=== PATIENT | male | born 1965 | race Caucasian/White ===

== ENCOUNTER → 2017-11-02 | Outpatient (CLI) | payer OTHER ==
[~2017-11-02] MED LIST: ALLOPURINOL 10100 M1; ALLOPURINOL 30300 M1; ANTACID650 MG PO; COREG25 MG; COZAAR 50 MG TA50 M2 PO; ERGOCALCIF50000 UNIT PO; HYDROCODON-ACE1 EAC8; MAGOX 400400 MG PO; METFORMIN HCL500 MG PO; NIFEDIPINE ER60 M1; OMEPRAZOLE40 MG; SYNTHROID137 MC1 PO; TUMS PO
== END ==
LOC: M.RAD 10:59
DX: R10.32 Left lower quadrant pain (principal)

== ENCOUNTER → 2017-11-05 | Outpatient (CLI) | payer OTHER ==
[2017-11-05 11:38] LABS: CREATININE 1.4 mg/dL (0.6-1.3)
== END ==
LOC: M.CT 11:22
PROVIDERS: Family Medicine
DX: D35.00 Benign neoplasm of unspecified adrenal gland (principal); M89.9 Disorder of bone, unspecified; N28.89 Other specified disorders of kidney and ureter; M53.3 Sacrococcygeal disorders, not elsewhere classified; N28.1 Cyst of kidney, acquired; N20.0 Calculus of kidney

== ENCOUNTER → 2017-11-06 | Outpatient (CLI) | payer OTHER | LOC: M.RAD 11:11 | DX: R05 Cough (principal) ==

== ENCOUNTER 2017-11-14 05:35 | Emergency (ER) | payer OTHER ==
[~2017-11-14] VITALS: Ht 177.8 cm; Wt 93.4 kg
[2017-11-14] MEDS ORDERED: COREG25 MG (05:43)
[2017-11-14] MEDS ORDERED: HYDROCODON-ACE1 EAC8 (05:43)
[2017-11-14] MEDS ORDERED: COZAAR 50 MG TA50 M2 PO (05:44)
[2017-11-14] MEDS ORDERED: NIFEDIPINE ER60 M1 (05:44)
[2017-11-14] MEDS ORDERED: OMEPRAZOLE40 MG (05:45)
[2017-11-14] MEDS ORDERED: METFORMIN HCL500 MG PO (05:45)
[2017-11-14] MEDS ORDERED: ALLOPURINOL 30300 M1 (05:45)
[2017-11-14] MEDS ORDERED: ALLOPURINOL 10100 M1 (05:45)
[2017-11-14 06:07] LABS: ABSOLUTE BASOPHILS 0.2 thou/uL (0.0-0.2); ABSOLUTE EOSINOPHILS 0.6 thou/uL (0.0-0.7); ABSOLUTE LYMPHOCYTES 2.1 thou/uL (0.8-5.3); ABSOLUTE NEUTROPHILS 9.9 thou/uL (1.6-8.1); BASOPHILS 1.1 %; EOSINOPHILS 4.4 %; HEMATOCRIT 29.3 % (42.0-52.0); HEMOGLOBIN 9.8 gm/dL (14.0-18.0); LYMPHOCYTES 15.4 %; MCH 27.7 pg (26.0-34.0); MCHC 33.6 g/dL (28.0-37.0); MCV 82.4 fL (80.0-100.0); MONOCYTES 7.4 %; MPV 7.2 fl. (7.2-11.1); NUCLEATED RBCS 0 /100WBC; PLATELET COUNT* 436 thou/uL (150-400); POLYS 71.7 %; RBC 3.55 mil/uL (4.50-6.00); RDW-CV 14.5 % (10.5-14.5); WBC 13.8 thou/uL (4.0-11.0)
[2017-11-14 06:26] LABS: CALCIUM 9.2 mg/dL (8.5-10.1); CREATININE 1.7 mg/dL (0.6-1.3)
[2017-11-14 06:31] LABS: ALBUMIN 2.9 g/dL (3.4-5.0); TOTAL BILIRUBIN 0.4 mg/dL (<0.1-1.0); TOTAL PROTEIN 6.9 g/dL (6.4-8.2)
[2017-11-14 06:43] LABS: BE -4.7 mmol/L (-2 to +3); HCO3 20.9 mmol/L (22.0-26.0); PCO2 40.8 mmHg (35.0-45.0); pH 7.328 (7.340-7.450)
[2017-11-14 06:49] LABS: URINE BILIRUBIN NEGATIVE (Negative); URINE BLOOD TRACE (Negative); URINE CLARITY CLEAR; URINE COLOR YELLOW; URINE GLUCOSE-RANDOM NEGATIVE (Negative); URINE KETONES NEGATIVE (Negative); URINE LEUKOCYTES-REFLEX NEGATIVE (Negative); URINE NITRITE-REFLEX NEGATIVE (Negative); URINE PROTEIN 1+ (Negative); URINE SPECIFIC GRAVITY 1.025 (1.005-1.030); URINE UROBILINOGEN 0.2 E.U./dl (0.2-1.0)
[2017-11-14 09:03] VITALS: BP 125/73
[2018-05-31] MEDS ORDERED: SYNTHROID137 MC1 PO (10:24)
[2018-05-31] MEDS ORDERED: ANTACID650 MG PO (10:25)
[2018-05-31] MEDS ORDERED: ERGOCALCIF50000 UNIT PO (10:27)
[2018-05-31] MEDS ORDERED: TUMS PO (10:29)
[2018-06-04] MEDS ORDERED: MAGOX 400400 MG PO (13:57)
== END 2017-11-14 09:09 | disposition still patient (30) ==
LOC: M.ERS 05:35
PROVIDERS: Personal Emergency Response Attendant
DX: N28.89 Other specified disorders of kidney and ureter (principal); I10 Essential (primary) hypertension; E11.9 Type 2 diabetes mellitus without complications

== ENCOUNTER 2021-02-23 01:16 | Inpatient (IN) | payer OTHER ==
[~2021-02-23] VITALS: Ht 177.8 cm; Wt 105.2 kg
[~2021-02-23 01:16] MED LIST changes: -ALLOPURINOL 10100 M1; +ALLOPURINOL 10100 M1 PO; -OMEPRAZOLE40 MG; +OMEPRAZOLE40 MG PO
[2021-02-23 01:35] VITALS: BP 179/107
[2021-02-23 02:06] LABS: ABSOLUTE BASOPHILS 0.1 thou/uL (0.0-0.2); ABSOLUTE EOSINOPHILS 0.4 thou/uL (0.0-0.7); ABSOLUTE LYMPHOCYTES 1.4 thou/uL (0.8-5.3); ABSOLUTE MONOCYTES 0.7 thou/uL (0.0-1.2); ABSOLUTE NEUTROPHILS 6.7 thou/uL (1.6-8.1); BASOPHILS 0.9 %; EOSINOPHILS 3.8 %; HEMATOCRIT 33.7 % (42.0-52.0); HEMOGLOBIN 11.7 gm/dL (14.0-18.0); LYMPHOCYTES 14.9 %; MCH 31.7 pg (26.0-34.0); MCHC 34.6 g/dL (28.0-37.0); MCV 91.5 fL (80.0-100.0); MONOCYTES 7.5 %; MPV 7.6 fl. (7.2-11.1); NUCLEATED RBCS 0 /100WBC; PLATELET COUNT* 151 thou/uL (150-400); POLYS 72.9 %; RBC 3.69 mil/uL (4.50-6.00); RDW-CV 14.7 % (10.5-14.5); WBC 9.2 thou/uL (4.0-11.0)
[2021-02-23] MEDS ORDERED: FLOMAX0.4 MG PO (02:08)
[2021-02-23] MEDS ORDERED: HYDRALAZINE HC100 MG PO (02:09)
[2021-02-23 02:10] LABS: CALCIUM 8.6 mg/dL (8.5-10.1); CREATININE 5.3 mg/dL (0.6-1.3); POTASSIUM 4.9 mmol/L (3.5-5.1)
[2021-02-23 02:14] LABS: ALBUMIN 4.3 g/dL (3.4-5.0); MAGNESIUM 1.5 mg/dL (1.8-2.4); TOTAL BILIRUBIN 0.4 mg/dL (<0.1-1.0); TOTAL PROTEIN 7.4 g/dL (6.4-8.2)
[2021-02-23 06:08] LABS: URINE BILIRUBIN NEGATIVE (Negative); URINE BLOOD 1+ (Negative); URINE CLARITY CLEAR; URINE COLOR YELLOW; URINE GLUCOSE-RANDOM NEGATIVE (Negative); URINE KETONES NEGATIVE (Negative); URINE LEUKOCYTES-REFLEX NEGATIVE (Negative); URINE NITRITE-REFLEX NEGATIVE (Negative); URINE PROTEIN 2+ (Negative); URINE UROBILINOGEN 0.2 E.U./dl (0.2-1.0)
[2021-02-23 06:40] LABS: BACTERIA-REFLEX 1-9 Few /HPF (None Seen); CASTS None Seen /LPF (None Seen); CRYSTALS None Seen /LPF (None Seen); MUCUS 0-3 Light strn/LPF (None Seen); SQUAMOUS 0-3 Few /LPF (0-3); URINE RBC 3-10 Few /HPF (0-2); URINE WBC-REFLEX 0-5 Rare /HPF (0-5)
[2021-02-23 08:47] VITALS: BP 126/81
--- NOTE | 2021-02-23 09:45 | EKG ---
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
[2021-02-23] MEDS ORDERED: SENOKOT8.6 MG PO (09:59)
[2021-02-23] MEDS ORDERED: LEVO-T137 MCG PO (10:01)
[2021-02-23] MEDS ORDERED: ZYRTEC10 M4 PO (10:02)
[2021-02-23] MEDS ORDERED: NEPHRO-VITE TA0.8 MG PO (10:03)
[2021-02-23] MEDS ORDERED: ULTIMATE PROBI1 EACH PO (10:06)
[2021-02-23] MEDS ORDERED: SODIUM BICARBO650 M3 PO (10:08)
[2021-02-23 13:59] VITALS: BP 150/88
[2021-02-23 16:00] VITALS: BP 164/88
--- NOTE | 2021-02-23 18:08 | CON ---
[address] [address] CONSULTATION Name: DONNIE CARDONA Room: [address] M.R.#: [id number] Admission: 02/23/21 Attend Phys: Oriana Suárez MD Discharge: Date of : 67 Report #: [id number] THIS REPORT FOR: cc: Dom Sliva Russell J. DO Vardakis, Gregory DO ~ cc: Dom Silva DO, Ravindra R. Chuda, MD DATE OF CONSULTATION: 02/23/2021 Please note at the time of this dictation, the patient was seen and physically examined by myself. REASON FOR CONSULTATION: Abdominal pain, nausea, vomiting, and pancreatitis. HISTORY OF PRESENT ILLNESS: This is a 55-year-old male who received his first radiation treatment yesterday for his lung cancer with spot radiation directed to an enlarged lymph node behind his stomach, per his . She states around 10 o'clock last evening he had an abrupt onset of severe abdominal pain causing nausea and vomiting to the point that he could not stand it and normally, pain medication he only needs to take Tylenol, prompting him to come to the Emergency Room for further evaluation. states he had no issues with radiation yesterday. She states that his emesis was nonbloody or no coffee-ground emesis noted. He only takes Tylenol if he needs to take anything. He states his bowels move loosely several times a day. He takes senna on a regular basis because he does not want to get constipated with him due on peritoneal dialysis. The patient does peritoneal dialysis on Sunday, Sunday, and Sunday and thus has been doing very well with that since approximately 2019. ALLERGIES: No known drug allergies. MEDICATIONS FROM HOME: Include levothyroxine, antacid, omeprazole, allopurinol, Flomax, hydralazine, and magnesium oxide. PAST MEDICAL HISTORY: Renal cancer in 2018. Subsequently, then developing stage 4 kidney disease after his left kidney was removed. Diabetic, hypertension, history of thyroid cancer with dissection and had 15 nodes were removed, histoplasmosis. The patient had a colonoscopy greater than 10 years ago at [facility]. She does not recall what it showed and he has not ever had an upper scope done, states, and we will obtain those records. PAST SURGICAL HISTORY: He had thyroidectomy, nephrectomy on the left, and a partial left lower [place] [address] CONSULTATION Name: DONNIE CARDONA Room: [address]#: [id number] Admission: 02/23/21 Attend Phys: Oriana Suárez MD Discharge: Date of : 67 Report #: [id number] FAMILY HISTORY: Negative for any GI or female cancers. SOCIAL HISTORY: Denies any alcohol, tobacco, or illegal drug use. REVIEW OF SYSTEMS: Twelve-point review of systems is essentially negative except what is mentioned in the HPI. PHYSICAL EXAMINATION: VITAL SIGNS: Temperature 36.1, pulse 75, respirations 14, and blood pressure 126/81. HEART: Regular rate and rhythm, somewhat tachycardic. LUNGS: Diminished but clear. ABDOMEN: Soft, mild tenderness in the epigastric area with positive bowel sounds. LABORATORY DATA: LFTs are completely normal. Total bilirubin 0.4, alk phos 95, ALT 28, AST 17, BUN is 42, and creatinine 5.3. Hemoglobin is 11.7, white count is 9.2, and platelets 131. Lipase is 1295. His GFR is only 11. IMAGING DATA: CT scan shows multiple pulmonary nodules consistent with pulmonary metastatic disease. Peritoneal dialysis catheter in place with noted mild prominence of the wall of the transverse and descending colon. He has layering gallstones without any gallbladder wall thickening or distention. Some diverticulosis noted. Abdominal ultrasound is pending. IMPRESSION: 1. Elevated lipase, question secondary to recent radiation. 2. Nausea and vomiting secondary to pain. 3. Abdominal pain. 4. Loose stools, recurrent. 5. Chronic kidney disease. He is on peritoneal dialysis Sunday, Sunday, and Sunday. 6. History of lung cancer with radiation specific to an enlarged node behind the stomach. Received first radiation treatment yesterday. 7. History of renal and thyroid cancer. PLAN: 1. Ultrasound is pending. 2. Continue the IV fluids cautiously secondary to his chronic kidney disease. 3. We will obtain records from [facility]. 4. The patient will likely need a colonoscopy, but timing of this to be determined. 5. Further recommendations to be made after Dr. Guzman sees the patient later today. [address] [place] [address] CONSULTATION Name: DONNIE CARDONA Room: [address] [place] M..#: [id number] Admission: 02/23/21 Attend Phys: Oriana Suárez MD Discharge: Date of : 67 Report #: [id number] Thank you for allowing us to participate in this patient's care. Please do not hesitate to call with any questions regarding this consult. <ELECTRONICALLY SIGNED> By: Yong Guzman DO 02/23/21 1808 1045 [id number] Guzman DO /nt
--- NOTE | 2021-02-23 18:35 | NUR ---
PT WAS BROUGHT UP ON A HOSPITAL BED PT HAS BEEN RESTINBG SINCE HE WAS BROUGHT UP. PT DID ASK FOR PAIN MEDICATION MEDICATIONS GIVEN IVP. PT WEARS CPAP WHEN RESTING ON HIS BED. WILL CONTINUE TO MONITOR PLAN OF CARE.
[2021-02-23 21:00] VITALS: BP 145/77
[2021-02-24 04:37] LABS: HEMATOCRIT 27.7 % (42.0-52.0); MCH 31.8 pg (26.0-34.0); MCHC 34.3 g/dL (28.0-37.0); MCV 92.6 fL (80.0-100.0); MPV 7.9 fl. (7.2-11.1); RBC 2.99 mil/uL (4.50-6.00); RDW-CV 14.2 % (10.5-14.5); WBC 8.1 thou/uL (4.0-11.0)
[2021-02-24 04:39] LABS: HEMOGLOBIN 9.5 gm/dL (14.0-18.0)
[2021-02-24 04:50] LABS: ALBUMIN 3.4 g/dL (3.4-5.0); ALKALINE PHOSPHATASE 83 U/L (46-116); ANION GAP 11 mmol/L (7-16); BUN 39 mg/dL (7-18); CALCIUM 7.7 mg/dL (8.5-10.1); CHLORIDE 106 mmol/L (98-107); CHOLESTEROL 115 mg/dL (<200); CO2 24 mmol/L (21-32); CREATININE 4.7 mg/dL (0.6-1.3); GLUCOSE 137 mg/dL (70-99); HDL CHOLESTEROL 30 mg/dL (>40); LDL CHOLESTEROL 26 mg/dL (<100); LIPASE 334 U/L (73-393); MAGNESIUM 1.7 mg/dL (1.8-2.4); POTASSIUM 4.7 mmol/L (3.5-5.1); SGOT 24 U/L (15-37); SGPT 24 U/L (30-65); SODIUM 141 mmol/L (136-145); TC:HDL 3.8 Ratio (Not establshd); TOTAL BILIRUBIN 0.7 mg/dL (<0.1-1.0); TOTAL PROTEIN 6.2 g/dL (6.4-8.2); TRIGLYCERIDE 299 mg/dL (<150); VLDL 60 mg/dL (<40)
[2021-02-24 05:22] LABS: SERUM ASSESSMENT CLEAR
--- NOTE | 2021-02-24 07:10 | NUR ---
Admitted from HOME BROUGHT HIM Admission Assessment Mental Status upon admission A&O X3 Living Arrangements: HOUSE Lives with: or they live with patient Support system: Name Phone number Relationship LIZZY CARDONA SAME ON [employer]OUSE Can patient return to prior living arrangements? YES Activities of daily living: Independent Assistive device: NONE Prior resource use: None Notes: PATIENT HAS BEEN DX WITH LUNG CANCER IS CURRENTLY ON RADIATION USES CPAP AT HOME PCP DR GINO WYNN NO
--- NOTE | 2021-02-24 08:20 | NUR ---
Alert and oriented x 4. Up with asssit to the bathroom or he uses urinal. He has been on peritoneal dialysis all of this shift. This am his machine was alarming saying there was a blockage, reassessed it and repositioned not finding a blockage and they would turn it back on and run a few minutes and again say blockage. did turn the machine off and dialysis was notified. Sarah from dialysis is here and she is reassessing it. His L arm has a fistula that has positive thrill and bruit. He has a distended abomen with bowel sounds x 4. Pain med given x 1 this shift. He did sleep well.
[2021-02-24 08:44] VITALS: BP 147/74
--- NOTE | 2021-02-24 09:56 | NUR ---
Nutrition: Pt admitted with acute pancreatitis, hypomag. Seen for nsg risk 2 points. Wt fluctuates d/t ESRD on PD. Pt tolerated Liquids yday, diet advancing. Wt: 232# currently. Labs: BG 137, alb 3.4, BUN 39, cr 4.7, GFR 13. H/o lung cancer with METS, DM, HTN, ESRD. Hopeful pt will continue tolerating diet advancement to goal of Renal diet. Pt feels better. Otherwise, mild nutrition risk.
[2021-02-24 13:39] LABS: HEMATOCRIT 29.2 % (42.0-52.0)
--- NOTE | 2021-02-24 14:42 | NUR ---
Anticipate dc in a few days. GI advanced diet and signed off. Onc and renal following.
[2021-02-24 15:54] VITALS: BP 151/77
[2021-02-24 20:20] VITALS: BP 149/86
--- NOTE | 2021-02-25 04:49 | NUR ---
PATIENT HAS REMAINED ALERT AND ORIENTED X 4 THROUGHOUT THE SHIFT AND RESTING QUIETLY ON HOURLY ROUNDS. AT BEDSIDE AND ASSISTS WITH MANY OF PATIENT CARES. OVERNIGHT PERITONEAL DIALYSIS IN PROGRESS. DRESSING LEFT LOWER ABD DIALYSIS SITE CLEAN AND DRY. PATIENT STATES EXPERIENCING SOME ADDITIONAL ABDOMINAL PAIN TONIGHT. MEDICATED X 2 OF THIS WRITING. ZOFRAN X 1 THIS SHIFT FOR NAUSEA WITHOUT EMESIS TO GOOD EFFECT. CPAP HS. VITAL SIGNS STABLE. NPO FOR CT THIS AM. CONTINUE TO MONITOR.
[2021-02-25 06:27] VITALS: BP 154/75
[2021-02-25 08:21] VITALS: BP 119/63
[2021-02-25 10:40] LABS: HEMATOCRIT 29.4 % (42.0-52.0); HEMOGLOBIN 10.2 gm/dL (14.0-18.0); MCH 32.3 pg (26.0-34.0); MCHC 34.7 g/dL (28.0-37.0); MCV 93.2 fL (80.0-100.0); MPV 8.3 fl. (7.2-11.1); RBC 3.15 mil/uL (4.50-6.00); RDW-CV 14.7 % (10.5-14.5); WBC 8.5 thou/uL (4.0-11.0)
[2021-02-25 10:58] LABS: CALCIUM 8.1 mg/dL (8.5-10.1); CREATININE 4.9 mg/dL (0.6-1.3); MAGNESIUM 1.6 mg/dL (1.8-2.4); POTASSIUM 4.3 mmol/L (3.5-5.1)
--- NOTE | 2021-02-25 13:37 | NUR ---
Anticipate dc tomorrow. GI, renal and onc following. Pt does PD 3x/week. No needs anticipated at dc.
--- NOTE | 2021-02-25 16:14 | NUR ---
PT REMAINED ALERT AND ORIENTED. PT RESTING IN BED. PAIN AND NAUSEA MEDS GIVEN ORDERED. CT SCAN CANCELLED TODAY DUE TO CONCERNS FOR KIDNEY. PD TONIGHT. FALL RISK PRECAUTIONS IN PLACE. HOURLY ROUNDING COMPLETED.
[2021-02-25 16:59] VITALS: BP 116/49
[2021-02-25 23:36] VITALS: BP 148/78
[2021-02-26 04:44] VITALS: BP 102/76
--- NOTE | 2021-02-26 05:17 | NUR ---
PT IS AO X4 SITTING UP TO BEDSIDE TABLE PLAYING CARDS WITH HIS . HE REPORTS PAIN 7/10IN ABD FOR WHICH HE WAS ADMINISTERED DILAUDID AND ZOFRAN FOR NAUSEA. HE REQUESTS THIS APPROX EVERY 4 HRS. PT HOOKED HIMSELF UP TO HIS PERITONEAL DIALYSIS MACHINE AT HS. HE SLEEPS WITH CPAP FROM HOME. ROCEPHIN WAS ADMINISTERED PER SEP. CALL LIGHT WITHIN REACH.
[2021-02-26 07:25] VITALS: BP 120/46
[2021-02-26 07:54] LABS: HEMATOCRIT 28.6 % (42.0-52.0); HEMOGLOBIN 9.5 gm/dL (14.0-18.0); MCH 30.7 pg (26.0-34.0); MCHC 33.2 g/dL (28.0-37.0); MCV 92.6 fL (80.0-100.0); MPV 7.8 fl. (7.2-11.1); RBC 3.09 mil/uL (4.50-6.00); RDW-CV 14.3 % (10.5-14.5); WBC 5.8 thou/uL (4.0-11.0)
[2021-02-26 08:02] LABS: CALCIUM 8.2 mg/dL (8.5-10.1); CREATININE 4.8 mg/dL (0.6-1.3)
[2021-02-26 15:40] VITALS: BP 115/69
--- NOTE | 2021-02-26 15:58 | NUR ---
PT REMAINED ALERT AND ORIENTED. PT RESTING IN BED. PD GIVEN PER DIALYSIS NURSE. PAIN AND NAUSEA MEDS GIVEN ORDERED. AWAITING PT TO HAVE A BM, MEDS GIVEN TO ASSIST. HOURLY ROUNDING COMPLETED. FAMILY AT BEDSIDE. CALL LIGHT WITHIN REACH.
[2021-02-26 20:30] VITALS: BP 111/51
--- NOTE | 2021-02-27 07:21 | NUR ---
PATIENT SLEPT PART OF THE NIGHT. PATIENT WAS GIVEN NAUSEA MEDICINE TWICE. PATIENT STATES HE HASN'T HAD A BOWEL MOVEMENT SINCE SUNDAY. MIRLAX WAS GIVEN STILL NO BM PATIENT WILL GET ANOTHER DOSE OF MILK OF MAG THIS MORNING. IV REMAINS SALINE LOCKED. PATIENT WAS HOOKED UP TO PERITONEAL DIALYSIS ALL NIGHT. PATIENT IS SUPPOSED TO DISCHARGE HOME TODAY. WILL CONTINUE TO MONITOR.
[2021-02-27 07:30] VITALS: BP 110/51
[2021-02-27] MEDS ORDERED: NYSTATIN100000 UNI PO (13:10)
[2021-02-27] MEDS ORDERED: LIDOPATCH1 EACH TOP (13:11)
[2021-02-27] MEDS ORDERED: CEFDINIR300 MG PO (13:16)
[2021-02-27 13:25] VITALS: BP 110/51
[2021-02-27] MEDS ORDERED: ONDANSETRON HCL4 M2 PO (14:39)
--- NOTE | 2021-02-27 14:47 | NUR ---
PT GIVEN DISCHARGE INFORMATION. PRESCTIPTIONS GIVEN TO PATIENT. IV REMOVED. PT BELONGINGS GATHERED. PT LEFT AMBULATORY WITH NURSING STAFF TO HOME.
== END 2021-02-27 14:48 | disposition home or self-care (01) | DRG 438 ==
LOC: M.ERS 01:16 → M.TBA-ER 04:57 → M.3W 12:02
PROVIDERS: Emergency Medicine; Internal Medicine; ADMIT Family Medicine; ATTEND Family Medicine
PROC: 5A09357 Assistance with Respiratory Ventilation, Less than 24 Consecutive Hours, Continuous Positive Airway Pressure (ICD-10-PCS; principal; 2021-02-23)
DX: K85.90 Acute pancreatitis without necrosis or infection, unspecified (principal); N18.6 End stage renal disease; K65.9 Peritonitis, unspecified; I12.0 Hypertensive chronic kidney disease with stage 5 chronic kidney disease or end stage renal disease; C79.00 Secondary malignant neoplasm of unspecified kidney and renal pelvis; R18.8 Other ascites; E11.22 Type 2 diabetes mellitus with diabetic chronic kidney disease; E66.9 Obesity, unspecified; K21.9 Gastro-esophageal reflux disease without esophagitis; E83.51 Hypocalcemia; E83.42 Hypomagnesemia; K80.80 Other cholelithiasis without obstruction; D69.6 Thrombocytopenia, unspecified; Z20.822 Contact with and (suspected) exposure to COVID-19; Z99.2 Dependence on renal dialysis; Z85.118 Personal history of other malignant neoplasm of bronchus and lung; Z79.899 Other long term (current) drug therapy; Z68.33 Body mass index [BMI] 33.0-33.9, adult; Z85.850 Personal history of malignant neoplasm of thyroid; Z92.3 Personal history of irradiation